=== PATIENT | female | born 1985 | race African-American/Black ===

== ENCOUNTER 2016-12-23 14:22 | Outpatient (CLI) | payer MEDICAID | END 2016-12-23 14:23 | disposition home or self-care (01) | LOC: SC 14:22 | PROVIDERS: ATTEND Specialist | DX: R06.83 Snoring (principal); E66.9 Obesity, unspecified; R53.83 Other fatigue | CPT/HCPCS: 99204; 99212 ==

== ENCOUNTER 2017-02-24 13:02 | Outpatient (CLI) | payer MEDICAID | END 2017-02-24 13:03 | disposition home or self-care (01) | LOC: SC 13:02 | PROVIDERS: ATTEND Specialist | DX: R06.83 Snoring (principal) | CPT/HCPCS: 99212; 99213 ==

== ENCOUNTER 2018-07-30 21:09 | Emergency (ER) | payer MEDICAID ==
[2018-07-30] MEDS ORDERED: DEXAMETHASONE 10 MG/ML VIAL PO STA (22:03)
[2018-07-30] MEDS ORDERED: CHERRY SYRUP 10 ML UDC PO ONE (22:13)
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
[2018-07-30 22:45] VITALS: BP 128/81
== END 2018-07-30 22:45 | disposition home or self-care (01) ==
LOC: ED 21:09
DX: R13.12 Dysphagia, oropharyngeal phase (principal)
CPT/HCPCS: 99283; A9270

== ENCOUNTER 2018-10-13 08:52 | Outpatient (CLI) | payer MEDICAID ==
--- NOTE | 2018-10-13 18:49 | XRAY Report ---
Reason: DYSPHAGIA Procedure Date: 10/13/2018 Accession Number: [id number] / [id number] Procedure: FL - Modified Barium Swallow W/SP CPT Code: FULL RESULT: EXAM: MODIFIED BARIUM SWALLOW EXAM DATE: 10/13/2018 09:52 AM. CLINICAL HISTORY: DYSPHAGIA. COMPARISON: None. TECHNIQUE: Under the direction of speech pathology, patient swallowed various consistencies of barium under lateral fluoroscopic observation of the neck. Fluoroscopy Time: 2 minutes 46 seconds. Number of Images: 98. FINDINGS: Swallowing Mechanism: Normal oral phase and swallowing reflex. Airway Protection: Normal epiglottic motion. No episodes of tracheal penetration or aspiration with all consistencies of barium. Pharynx: Normal. No significant vallecular or piriform sinus contrast pooling. Other: None. IMPRESSION: Normal modified barium swallow. No aspiration identified. See formal speech pathology report. RADIA
== END 2018-10-13 08:53 | disposition home or self-care (01) ==
LOC: DI 08:52
PROVIDERS: ATTEND Otolaryngology
DX: R13.19 Other dysphagia (principal); R47.02 Dysphasia
CPT/HCPCS: 74230

== ENCOUNTER 2018-10-24 14:57 | Emergency (ER) | payer MEDICAID ==
--- NOTE | 2018-10-24 16:13 | XRAY Report ---
Reason: cough, vomiting Procedure Date: 10/24/2018 Accession Number: [id number] / [id number] Procedure: XR - Chest 2 View X-Ray CPT Code: 20932 FULL RESULT: EXAM: CHEST RADIOGRAPHY EXAM DATE: 10/24/2018 04:04 PM. CLINICAL HISTORY: Cough and vomiting. COMPARISON: None. TECHNIQUE: 2 views. FINDINGS: Lungs/Pleura: No focal opacities evident. No pleural effusion. No pneumothorax. Normal volumes. Mediastinum: Heart and mediastinal contours are unremarkable. Other: None. IMPRESSION: No acute cardiopulmonary abnormality demonstrated. RADIA
--- NOTE | 2018-10-24 19:29 | ED Physician Documentation ---
PD HPI URI - Stated complaint Stated Complaint: SOA/ VOMIT - Chief complaint Chief Complaint: General - History obtained from History obtained from: Patient - History of Present Illness Timing - onset: How many months ago ( - 05/19) Timing duration: Months Timing details: Gradual onset, Waxing and waning Associated symptoms: Productive cough (having frequent cough with some white sputum and feeling of dyspnea. Has had some chest discomfort with coughing. Also has had trouble swallowing with feeling of food stuck at times. Improved with soft food/liquids. She is having some emesis at times, and she can't tell if is from coughing and vomiting phlegm or emesis from stomach per se. Had been to her PMD and had barium swallow study done which did not show abnormality. Patient believes her PMD is considering/getting referral for EGD. Had been given some cough med.). No: Fever Contributing factors: No: Sick contact, Travel, COPD / asthma Similar symptoms before: Has not had sx before (just the past 1-2 months) Recently seen: Clinic Review of Systems Constitutional: reports: Fatigue (for couple of weeks). denies: Fever, Chills, Myalgias Nose: denies: Rhinorrhea / runny nose, Congestion Throat: denies: Sore throat Cardiac: reports: Chest pain / pressure (with coughing) Respiratory: reports: Dyspnea, Cough. denies: Wheezing GI: reports: Nausea, Vomiting. denies: Abdominal Pain, Constipation, Diarrhea, Bloody / black stool Musculoskeletal: denies: Neck pain, Back pain, Extremity swelling Neurologic: reports: Generalized weakness. denies: Focal weakness, Numbness Endocrine: denies: Weight loss PD PAST MEDICAL HISTORY - Past Medical History Cardiovascular: None Respiratory: None Neuro: None Endocrine/Autoimmune: None GI: None WHIZZER HAND: None : None HEENT: None Psych: Depression, Anxiety Musculoskeletal: Other - Past Surgical History Past Surgical History: Yes General: Other Ortho: Other HEENT: Tonsil/Adenoidectomy - Present Medications Home Medications: Ambulatory Orders Medication Instructions Recorded Confirmed Naproxen 375 mg PO BID #20 tablet 02/14/16 Tramadol HCl 50 mg PO Q6H PRN #20 tablet 02/14/16 dexAMETHasone [Dexamethasone] 4 mg PO BID #10 tablet 07/30/18 Benzonatate [Tessalon Perle] 100 mg PO TID PRN #25 capsule 10/24/18 Doxycycline Hyclate 100 mg PO BID #20 capsule 10/24/18 Famotidine 20 mg PO DAILY #30 tablet 10/24/18 Ondansetron Odt [Zofran] 4 mg TL Q6H PRN #20 tablet 10/24/18 Sucralfate [Carafate] 1 gm PO TID #20 tablet 10/24/18 dexAMETHasone [Decadron] 4 mg PO DAILY #5 tablet 10/24/18 - Allergies Allergies/Adverse Reactions: Allergies Allergy/AdvReac Type Severity Reaction Status Date / Time No Known Drug Allergies Allergy Verified 10/24/18 15:09 - Social History Does the pt smoke?: No Smoking Status: Never smoker Does the pt drink ETOH?: No Does the pt have substance abuse?: No - Immunizations Immunizations are current?: No - POLST Patient has POLST: No PD ED PE NORMAL - Vitals Vital signs reviewed: Yes - General General: Alert and oriented X 3, No acute distress (intermittent cough), Well developed/nourished - HEENT HEENT: Moist mucous membranes, Pharynx benign - Neck Neck: Supple, no meningeal sign, No adenopathy - Cardiac Cardiac: RRR, No murmur - Respiratory Respiratory: Clear bilaterally - Abdomen Abdomen: Soft, Non tender, Non distended - Derm Derm: Normal color, Warm and dry - Extremities Extremities: No tenderness to palpate, Normal ROM s pain, No edema, No calf tenderness / cord - Neuro Neuro: Alert and oriented X 3, No motor deficit, Normal speech Results - Vitals Vitals: Vital Signs - 24 hr 10/24/18 10/24/18 10/24/18 15:05 18:08 20:28 Temperature 36.9 C 37.2 C Heart Rate 79 75 73 Respiratory 18 17 16 Rate Blood Pressure 149/78 H 132/78 H 131/76 H O2 Saturation 99 100 100 10/24/18 10/24/18 20:35 21:05 Temperature Heart Rate 80 72 Respiratory 20 Rate Blood Pressure 124/82 H O2 Saturation 98 Oxygen O2 Source Room air - Labs Labs: Laboratory Tests 10/24/18 19:20 WBC 9.6 RBC 4.70 Hgb 13.3 Hct 40.0 MCV 85.2 MCH 28.3 MCHC 33.2 RDW 13.7 Plt Count 261 MPV 9.2 Neut # (Auto) 6.2 Lymph # (Auto) 2.5 [place] # (Auto) 0.7 Eos # (Auto) 0.2 Baso # (Auto) 0.0 Absolute Nucleated RBC 0.01 Nucleated RBC % 0.1 - Rads (name of study) chest xray Radiology: Prelim report reviewed, See rad report (no acute process) PD MEDICAL DECISION MAKING - ED course Complexity details: reviewed results, considered differential (lung or bronchial process, with chronic productive cough, consider infectious, possible atypical bacterial. Also with symptoms sounding concerning for lower esophageal stricture, and refer to surgery for EGD. ), d/w patient Departure - Departure Disposition: 01 Home, Self Care Clinical Impression: Persistent cough for 3 weeks or longer Dysphagia Qualifiers: Dysphagia type: esophageal phase Qualified Code(s): R13.10 - Dysphagia, unspecified Condition: Stable Record reviewed to determine appropriate education?: Yes Instructions: ED Upper Resp Infec Abx Tx, ED GERD Follow-Up: Randall Machado MD [Provider Admit Priv/Credential] - Prescriptions: Benzonatate [Tessalon Perle] 100 mg PO TID PRN #25 capsule PRN Reason: Cough dexAMETHasone [Decadron] 4 mg PO DAILY #5 tablet Doxycycline Hyclate 100 mg PO BID #20 capsule Famotidine 20 mg PO DAILY #30 tablet Ondansetron Odt [Zofran] 4 mg TL Q6H PRN #20 tablet PRN Reason: Nausea / Vomiting Sucralfate [Carafate] 1 gm PO TID #20 tablet Comments: For the cough portion, would treated like bronchitis with possible bacterial cause and so would use doxycycline antibiotic twice daily for a week as well as Decadron steroid for the inflammation of the airways to reduce coughing and Tessalon if needed as a cough suppressant. Sounds like you have some irritation at the esophagus which commonly can be reflux. Use some famotidine twice daily for the next week or 2. He can add ondansetron if needed for nausea. Also coat the esophagus and stomach with suckle fate 2-3 times daily. Follow-up with your primary care this coming week for reevaluation. A consideration would be having this potential scope if this does not improve to see how the esophagus appears. You could call the surgery office for a follow-up appointment on that. Call tomorrow for an appointment this week. Hopefully this will improve with the above medications. Discharge Date/Time: 10/24/18 21:06
[2018-10-24 19:35] LABS: BASOPHILS % (AUTO) 0.3 %; EOSINOPHILS # (AUTO) 0.2 10^3/uL (0.0-0.7); EOSINOPHILS % (AUTO) 1.8 %; HGB - HEMOGLOBIN 13.3 g/dL (12.0-16.0); LYMPHOCYTES # (AUTO) 2.5 10^3/uL (1.5-3.5); LYMPHOCYTES % (AUTO) 25.8 %; MEAN CORPUSCULAR HEMOGLOBIN 28.3 pg (27.0-31.0); MEAN CORPUSCULAR HGB CONC 33.2 g/dL (32.0-36.0); MEAN CORPUSCULAR VOLUME 85.2 fL (81.0-99.0); MEAN PLATELET VOLUME 9.2 fL (7.9-10.8); MONOCYTES # (AUTO) 0.7 10^3/uL (0.0-1.0); MONOCYTES % (AUTO) 7.7 %; NEUTROPHILS # (AUTO) 6.2 10^3/uL (1.5-6.6); NEUTROPHILS % (AUTO) 64.4 %; PLT - PLATELET COUNT 261 10^3/uL (130-450); RED CELL DISTRIBUTION WIDTH 13.7 % (12.0-15.0); WHITE BLOOD COUNT 9.6 x10^3/uL (4.8-10.8)
[2018-10-24] MEDS ORDERED: LIDOCAINE VISCOUS 2% 15 ML UDC MM STA (19:59)
[2018-10-24] MEDS ORDERED: MAG HYDROX/AL HYDROX/SIMETH 30 ML UDC PO STA (20:00)
[2018-10-24] MEDS ORDERED: DOXYCYCLINE 100 MG TABLET PO STA (20:00)
[2018-10-24] MEDS ORDERED: FAMOTIDINE 20 MG/2 ML VIAL IVP STA (20:00)
[2018-10-24] MEDS ORDERED: BENZONATATE 100 MG CAPSULE PO STA (20:00)
[2018-10-24] MEDS ORDERED: DEXAMETHASONE 10 MG/ML VIAL IVP STA (20:00)
[2018-10-24] MEDS ORDERED: ALBUTEROL NEB 2.5 MG/3 ML INH STA (20:19)
[2018-10-24 21:06] VITALS: BP 124/82
== END 2018-10-24 21:06 | disposition home or self-care (01) ==
LOC: ED 14:57
DX: R05 Cough (principal); R13.19 Other dysphagia
CPT/HCPCS: 71046; 85025; 94640; 99283; 99284; A9270; 80053; 83690

== ENCOUNTER 2018-10-29 10:05 | Emergency (ER) | payer MEDICAID ==
[2018-10-29] MEDS ORDERED: METOCLOPRAMIDE 10 MG TABLET PO STA (12:19)
[2018-10-29 12:32] LABS: BASOPHILS % (AUTO) 0.3 %; EOSINOPHILS # (AUTO) 0.2 10^3/uL (0.0-0.7); EOSINOPHILS % (AUTO) 1.8 %; HGB - HEMOGLOBIN 12.4 g/dL (12.0-16.0); LYMPHOCYTES # (AUTO) 2.3 10^3/uL (1.5-3.5); LYMPHOCYTES % (AUTO) 20.8 %; MEAN CORPUSCULAR HEMOGLOBIN 27.9 pg (27.0-31.0); MEAN CORPUSCULAR HGB CONC 32.6 g/dL (32.0-36.0); MEAN CORPUSCULAR VOLUME 85.6 fL (81.0-99.0); MEAN PLATELET VOLUME 8.9 fL (7.9-10.8); MONOCYTES # (AUTO) 0.6 10^3/uL (0.0-1.0); MONOCYTES % (AUTO) 5.2 %; NEUTROPHILS # (AUTO) 8.1 10^3/uL (1.5-6.6); NEUTROPHILS % (AUTO) 71.9 %; PLT - PLATELET COUNT 232 10^3/uL (130-450); RED BLOOD COUNT 4.46 10^6/uL (4.20-5.40); RED CELL DISTRIBUTION WIDTH 13.3 % (12.0-15.0); WHITE BLOOD COUNT 11.3 x10^3/uL (4.8-10.8)
[2018-10-29 12:45] LABS: ALBUMIN 3.8 g/dL (3.2-5.5); BILIRUBIN,TOTAL 0.5 mg/dL (0.2-1.0); CALCIUM 9.3 mg/dL (8.5-10.3); CREATININE 0.7 mg/dL (0.4-1.0); TOTAL PROTEIN 7.8 g/dL (6.7-8.2)
[2018-10-29] MEDS ORDERED: METOCLOPRAMIDE 10 MG TABLET PO SCH (13:00)
[2018-10-29 13:13] LABS: BILIRUBIN,URINE NEGATIVE (NEGATIVE); CLARITY,URINE CLEAR (CLEAR); GLUCOSE, URINE (UA) NEGATIVE (NEGATIVE); KETONES,URINE (UA) NEGATIVE (NEGATIVE); LEUKOCYTE ESTERASE, URINE NEGATIVE (NEGATIVE); NITRITE,URINE NEGATIVE (NEGATIVE); OCCULT BLOOD,URINE NEGATIVE (NEGATIVE); PROTEIN,URINE NEGATIVE (NEGATIVE); UROBILINOGEN,URINE 0.2 (NORMAL) E.U./dL (NORMAL)
[2018-10-29 13:15] LABS: HCG UR QUAL NEGATIVE
--- NOTE | 2018-10-29 13:29 | XRAY Report ---
Reason: abd. pain; suspected constipation Procedure Date: 10/29/2018 Accession Number: [id number] / [id number] Procedure: XR - Abdomen 1 View X-Ray CPT Code: 69836 FULL RESULT: EXAM: ABDOMEN RADIOGRAPHY EXAM DATE: 10/29/2018 12:45 PM. CLINICAL HISTORY: Abdominal pain. Possible constipation. COMPARISON: None. TECHNIQUE: 1 view. FINDINGS: Bowel Gas Pattern: Within normal limits. No dilated loops. No significant retained stool. Other: None. IMPRESSION: Normal 1-view abdomen x-ray. RADIA
--- NOTE | 2018-10-29 13:46 | ED Physician Documentation ---
PD HPI ABD PAIN - Stated complaint Stated Complaint: CONSTIPATED - Chief complaint Chief Complaint: Abd Pain - History obtained from History obtained from: Patient - History of Present Illness Timing - onset: How many days ago (3) Timing - duration: Days (3) Timing - details: Still present Location: [facility] Recently seen: Emergency Dept (She was seen in the emergency department here 5 days ago for cough and sore throat with difficulty swallowing.) - Additional information Additional information: The patient is a 33-year-old female who states, "I can't go poop." Her last bowel movement was 3 days ago. She reports lower abdominal discomfort, but denies nausea, vomiting, fever, or dysuria. She denies history of similar symptoms in the past. She was seen in the emergency department here 5 days ago for cough and sore throat with difficulty swallowing. Chest x-ray at that time was negative. She was diagnosed with bronchitis and possible gastroesophageal reflux with some suspicion for esophageal stricture. It should be noted that she has previously undergone barium swallow for similar swallowing difficulty 3 months ago, and the swallowing study was normal. Review of Systems Constitutional: denies: Fever Nose: denies: Congestion Throat: denies: Sore throat Cardiac: denies: Chest pain / pressure Respiratory: denies: Dyspnea, Cough GI: reports: Abdominal Pain (Mild lower abdominal discomfort.), Constipation. denies: Nausea, Vomiting, Diarrhea : denies: Dysuria Skin: denies: Rash Musculoskeletal: denies: Back pain Neurologic: denies: Headache PD PAST MEDICAL HISTORY - Past Medical History Cardiovascular: None Respiratory: None Neuro: None Endocrine/Autoimmune: None GI: None COMPREHENSIVE OPHTHALMOLOGIST: None : None HEENT: None Psych: Depression, Anxiety Musculoskeletal: Other - Past Surgical History Past Surgical History: Yes General: Other Ortho: Other HEENT: Tonsil/Adenoidectomy - Present Medications Home Medications: Ambulatory Orders Medication Instructions Recorded Confirmed Naproxen 375 mg PO BID #20 tablet 02/14/16 Tramadol HCl 50 mg PO Q6H PRN #20 tablet 02/14/16 dexAMETHasone [Dexamethasone] 4 mg PO BID #10 tablet 07/30/18 Benzonatate [Tessalon Perle] 100 mg PO TID PRN #25 capsule 10/24/18 Doxycycline Hyclate 100 mg PO BID #20 capsule 10/24/18 Famotidine 20 mg PO DAILY #30 tablet 10/24/18 Ondansetron Odt [Zofran] 4 mg TL Q6H PRN #20 tablet 10/24/18 Sucralfate [Carafate] 1 gm PO TID #20 tablet 10/24/18 dexAMETHasone [Decadron] 4 mg PO DAILY #5 tablet 10/24/18 - Allergies Allergies/Adverse Reactions: Allergies Allergy/AdvReac Type Severity Reaction Status Date / Time No Known Drug Allergies Allergy Verified 10/29/18 10:16 - Social History Does the pt smoke?: No Smoking Status: Never smoker Does the pt drink ETOH?: No Does the pt have substance abuse?: No - Immunizations Immunizations are current?: No - POLST Patient has POLST: No PD ED PE NORMAL - Vitals Vital signs reviewed: Yes (normal) - General General: Alert and oriented X 3, Well developed/nourished - HEENT HEENT: Atraumatic, Pharynx benign - Neck Neck: No adenopathy - Cardiac Cardiac: RRR, No murmur - Respiratory Respiratory: No respiratory distress, Clear bilaterally - Abdomen Abdomen: Soft, Non tender, No organomegaly - Back Back: No CVA TTP - Derm Derm: No rash - Extremities Extremities: No edema, No calf tenderness / cord - Neuro Neuro: Alert and oriented X 3, No motor deficit, Normal speech Results - Vitals Vitals: Oxygen O2 Source Room air - Labs Labs: Laboratory Tests 10/29/18 10/29/18 10/29/18 12:26 12:26 13:09 WBC 11.3 H RBC 4.46 Hgb 12.4 Hct 38.1 MCV 85.6 MCH 27.9 MCHC 32.6 RDW 13.3 Plt Count 232 MPV 8.9 Neut # (Auto) 8.1 H Lymph # (Auto) 2.3 [place] # (Auto) 0.6 Eos # (Auto) 0.2 Baso # (Auto) 0.0 Absolute Nucleated RBC 0.00 Nucleated RBC % 0.0 Sodium 139 Potassium 3.4 L Chloride 103 Carbon Dioxide 27 Anion Gap 9.0 BUN 10 Creatinine 0.7 Estimated GFR (MDRD) 118 Glucose 116 H Calcium 9.3 Total Bilirubin 0.5 AST 20 ALT 17 Alkaline Phosphatase 61 Total Protein 7.8 Albumin 3.8 Globulin 4.0 Albumin/Globulin Ratio 1.0 Lipase 19 L Urine Color YELLOW Urine Clarity CLEAR Urine pH 7.0 Ur Specific [place] 1.015 Urine Protein NEGATIVE Urine Glucose (UA) NEGATIVE Urine Ketones NEGATIVE Urine Occult Blood NEGATIVE Urine Nitrite NEGATIVE Urine Bilirubin NEGATIVE Urine Urobilinogen 0.2 (NORMAL) Ur Leukocyte Esterase NEGATIVE Ur Microscopic Review NOT INDICATED Urine Culture Comments NOT INDICATED Urine HCG, Qual NEGATIVE - Rads (name of study) 1-view abd. Radiology: Prelim report reviewed, EMP read contemporaneously, See rad report (Normal 1 view abdominal x-ray.) PD MEDICAL DECISION MAKING - ED course Complexity details: reviewed old records, reviewed results, re-evaluated patient, considered differential, d/w patient ED course: The cause of the patient's lower abdominal discomfort is unclear at this time. CBC, chemistry panel, and urinalysis are unremarkable. test is negative. 1 view abdominal x-ray reveals no radiographic abnormality. Repeated abdominal examination reveals a benign abdomen. There is no clinical evidence to suggest appendicitis, diverticulitis, urinary tract infection, and test is negative. Although the patient reports having no bowel movement for the past 3 days, there is no significant stool load seen on radiographic imaging. Treatment in the emergency department included administration of metoclopramide 10 mg orally. I discussed with her the negative results of her workup, symptomatic treatment and outpatient follow-up, as well as potentially worrisome signs or symptoms that should prompt reevaluation in the emergency department. Departure - Departure Disposition: 01 Home, Self Care Clinical Impression: Abdominal pain of unknown cause Condition: Stable Instructions: ED Abdominal Pain Unkn Cause Follow-Up: Alfreda Sahu PA [Primary Care Provider] - Comments: Drink plenty of fluids. You can use milk of magnesia, up to 30 mL daily as a gentle stool softener. Follow-up with your primary physician within 2 weeks. Call to schedule appointment. Return to the emergency department if you develop increasing abdominal pain, persistent vomiting, or otherwise worsening symptoms. Discharge Date/Time: 10/29/18 14:16
[2018-10-29 14:17] VITALS: BP 124/79
== END 2018-10-29 14:16 | disposition home or self-care (01) ==
LOC: ED 10:05
DX: R10.30 Lower abdominal pain, unspecified (principal)
CPT/HCPCS: 36415; 74018; 80053; 81003; 81025; 83690; 85025; 99283; A9270; 81001; 87086

== ENCOUNTER 2018-12-18 03:32 | Outpatient (CLI) | payer MEDICAID | END 2018-12-18 03:33 | disposition critical access hospital (66) | LOC: EMS 03:32 | PROVIDERS: ATTEND Surgery | DX: R06.00 Dyspnea, unspecified (principal); R05 Cough; R49.0 Dysphonia | CPT/HCPCS: A0425; A0429; A0999 ==

== ENCOUNTER 2018-12-18 03:58 | Emergency (ER) | payer MEDICAID ==
--- NOTE | 2018-12-18 04:38 | ED Physician Documentation ---
History of Present Illness - Stated complaint Stated Complaint: SOA - Chief complaint Chief Complaint: Heent - History obtained from History obtained from: Patient, Family, EMS - History of Present Illness Timing: Other (gradually worsening symptoms over past week) Pain level max: 0 Pain level now: 0 Improved by: no ameliorating factors Worsened by: no exacerbating factors - Additonal information Additional information: Brought in by ambulance for shortness of breath. Patient was diagnosed approximately one month ago with myasthenia gravis. She has been on pyridostygmine since the diagnosis was made, but has experience gradually worsening symptoms despite this medication, particularly over the past week. She was reevaluated by her neurologist on Thursday, at which time she was prescribed a prednisone taper and her pyridostygmine was increased from three times a day to four times a day. She has had two days of prednisone, 80 mg per day, thus far. Despite these medications, she has continue to have gradually worsening symptoms. She complains of shortness of breath, cough, and difficulty swallowing secretions as well as coughing up secretions. She also has had gradually worsening difficulty with speaking. Patient says she is scheduled to have a CAT scan done at [facility] later this month in preparation for likely thymectomy. Review of Systems Constitutional: reports: Reviewed and negative Eyes: reports: Reviewed and negative Throat: reports: Reviewed and negative Cardiac: reports: Reviewed and negative Respiratory: reports: Dyspnea, Cough GI: reports: Reviewed and negative Neurologic: reports: Difficulty speaking. 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 : None HEENT: None Psych: Depression, Anxiety Musculoskeletal: Other Other Past Medical History: Myasthenia Gravis - Past Surgical History Past Surgical History: Yes General: Other Ortho: Other HEENT: Tonsil/Adenoidectomy - Present Medications Home Medications: Ambulatory Orders Medication Instructions Recorded Confirmed Pyridostigmine [place] [Mestinon] 60 mg PO DAILY 12/18/18 12/18/18 predniSONE [Prednisone] 80 mg PO DAILY 12/18/18 12/18/18 - Allergies Allergies/Adverse Reactions: Allergies Allergy/AdvReac Type Severity Reaction Status Date / Time No Known Drug Allergies Allergy Verified 12/18/18 04:09 - Social History Does the pt smoke?: No Smoking Status: Never smoker Does the pt drink ETOH?: No Does the pt have substance abuse?: No - Immunizations Immunizations are current?: No - POLST Patient has POLST: No PD ED PE NORMAL - Vitals Vital signs reviewed: Yes - General General: Alert and oriented X 3, No acute distress, Well developed/nourished, Other (NAD. speaks softly and difficulty with phonation such that it is often difficult to understand what she is saying) - HEENT HEENT: PERRL, EOMI, Moist mucous membranes - Neck Neck: Supple, no meningeal sign - Cardiac Cardiac: RRR, No murmur - Respiratory Respiratory: No respiratory distress, Clear bilaterally - Abdomen Abdomen: Soft, Non tender - Derm Derm: Normal color, Warm and dry - Extremities Extremities: No edema - Neuro Neuro: Alert and oriented X 3, batch room technician 2-12 intact, No motor deficit, No sensory deficit Eye Opening: Spontaneous Motor: Obeys Commands Verbal: Oriented GCS Score: 15 Results - Vitals Vitals: Vital Signs - 24 hr 12/18/18 12/18/18 12/18/18 04:04 07:30 09:00 Temperature 36.7 C Heart Rate 69 62 73 Respiratory 22 13 16 Rate Blood Pressure 174/98 H 107/63 111/76 O2 Saturation 96 99 98 12/18/18 12/18/18 12/18/18 11:00 13:00 15:00 Temperature Heart Rate 65 59 L 66 Respiratory 13 14 12 Rate Blood Pressure 112/93 H 116/72 132/60 H O2 Saturation 99 99 100 12/18/18 12/18/18 17:00 18:12 Temperature Heart Rate 64 60 Respiratory 14 14 Rate Blood Pressure 133/84 H 139/84 H O2 Saturation 100 100 Oxygen O2 Source Room air - Labs Labs: Laboratory Tests 12/18/18 12/18/18 12/18/18 05:40 05:40 09:42 WBC 10.9 H RBC 4.04 L Hgb 11.5 L Hct 36.3 L MCV 89.9 MCH 28.5 MCHC 31.7 L RDW 13.2 Plt Count 213 MPV 11.0 H Neut # (Auto) 6.5 Lymph # (Auto) 3.6 H [place] # (Auto) 0.7 Eos # (Auto) 0.0 Baso # (Auto) 0.0 Absolute Nucleated RBC 0.00 Nucleated RBC % 0.0 Bld Gas Analysis Time 0942 Sample Site LEFT RADIAL ABG pH 7.41 ABG pCO2 40 ABG pO2 77 L ABG HCO3 24.9 ABG Total CO2 26.1 ABG O2 Saturation 95 ABG Base Excess 0.4 Adarsh Test POSITIVE Room Air YES Sodium 144 Potassium 3.9 Chloride 106 Carbon Dioxide 24 Anion Gap 14.0 H BUN 12 Creatinine 0.6 Estimated GFR (MDRD) 140 Glucose 96 Calcium 9.3 - Rads (name of study) chest xray Radiology: Prelim report reviewed, See rad report PD MEDICAL DECISION MAKING - ED course Complexity details: reviewed old records, reviewed results, re-evaluated patient, considered differential, d/w patient, d/w family ED course: patients neurologist is Dr. Burgess at [facility]; unfortunately, neurology is not sponge maker at [facility] this weekend. contact at [facility] attempted to reach Dr. Burgess despite not being sponge maker and they subsequently called back to inform that they were unable to contact Dr. Burgess. Called to [facility], no beds available. Called to [facility] No beds available at [facility] in [place] but transfer center put me in contact with the hospitalist at their facility in [place]. Hospitalist recommends CXR and ABG and to have patient take their morning dose of pyridostygmine. Hospitalist will discuss the case with neurology and recontact [facility] ED to confirm plan provided appropriate bed is available. This return call, as well as results of cxr and abg, were still pending at end of my shift and thus care of patient turned over to Dr. Thomas. Departure - Departure Disposition: 02 Transfer Acute Care Hosp Clinical Impression: Myasthenia gravis in crisis Condition: Serious Discharge Date/Time: 12/18/18 18:49
[2018-12-18 05:52] LABS: BASOPHILS % (AUTO) 0.2 %; EOSINOPHILS % (AUTO) 0.3 %; HGB - HEMOGLOBIN 11.5 g/dL (12.0-16.0); LYMPHOCYTES # (AUTO) 3.6 10^3/uL (1.5-3.5); LYMPHOCYTES % (AUTO) 32.8 %; MEAN CORPUSCULAR HEMOGLOBIN 28.5 pg (27.0-31.0); MEAN CORPUSCULAR HGB CONC 31.7 g/dL (32.0-36.0); MEAN CORPUSCULAR VOLUME 89.9 fL (81.0-99.0); MONOCYTES # (AUTO) 0.7 10^3/uL (0.0-1.0); MONOCYTES % (AUTO) 6.6 %; NEUTROPHILS # (AUTO) 6.5 10^3/uL (1.5-6.6); NEUTROPHILS % (AUTO) 59.7 %; PLT - PLATELET COUNT 213 10^3/uL (130-450); RED BLOOD COUNT 4.04 10^6/uL (4.20-5.40); RED CELL DISTRIBUTION WIDTH 13.2 % (12.0-15.0); WHITE BLOOD COUNT 10.9 x10^3/uL (4.8-10.8)
[2018-12-18 06:16] LABS: CALCIUM 9.3 mg/dL (8.5-10.3); CREATININE 0.6 mg/dL (0.4-1.0)
[2018-12-18 09:55] LABS: ABG BASE EXCESS 0.4 mmol/L (-2.0-3.0); ABG HCO3 24.9 mmol/L (22.0-26.0); ABG OXYGEN SATURATION 95 % (94-98); ABG PCO2 40 mmHg (34-45); ABG PH 7.41 (7.35-7.45); ABG PO2 77 mmHg (80-100); ABG TCO2 26.1 MMOL/L (21.0-29.0); ALLEN TEST POSITIVE
--- NOTE | 2018-12-18 09:55 | XRAY Report ---
Reason: dyspnea Procedure Date: 12/18/2018 Accession Number: [id number] / [id number] Procedure: XR - Chest 2 View X-Ray CPT Code: 03687 FULL RESULT: EXAM: CHEST RADIOGRAPHY EXAM DATE: 12/18/2018 09:31 AM. CLINICAL HISTORY: Dyspnea. History of myasthenia gravis. COMPARISON: CHEST 2 VIEW 10/24/2018 4:00 PM. TECHNIQUE: 2 views. FINDINGS: Lungs/Pleura: There is mild interstitial prominence at the bilateral lung bases. No pleural effusion or pneumothorax. There is stable asymmetric elevation of the left hemidiaphragm. Mediastinum: Heart and mediastinal contours are unremarkable. Other: No acute osseous abnormality. IMPRESSION: 1. Mild interstitial prominence of the bilateral lung bases, suggestive of atelectasis and/or edema. Pneumonia or aspiration cannot be excluded. 2. There is stable asymmetric elevation of the left hemidiaphragm. RADIA
--- NOTE | 2018-12-18 17:43 | ED Physician Documentation ---
ED Addendum - Addendum Addendum: Patient was signed out to me from Dr. Segura. This is a 33-year-old female with myasthenia gravis who presents in what appears to be myasthenia crisis. We are awaiting consultation with neurology [facility]. I spoke to neurologist on-call [facility], who asked That a NIF be performed. NIF returned at -18, FVC was 1.4 L. Chest x-ray showed bilateral atelectasis.ABG showed pH of 7.4, PaO2 of 77, and PCO2 of 40. Given her poor negative ventilatory force she will require admission to an ICU. I spoke with Dr. Ellis At the [facility] ICU, who accepted the patient for transfer. She will be going ALS given her risk of decompensation. On my evaluation she is normoxic, she feels that she is been stable and she has been observed in our emergency department for over 10 hours at this point, I do not feel that she requires intubation prior to transfer. Additional IV access was secured to the patient has 2 lines. I spoke with the medics about my specific concerns with her airway and risk for decompensation. I updated patient with the plan of care, she was in agreement. She has been taking her home dose of the pyridostigmine while in our ED, last dose at 16:00. Patient was subsequently transferred to ICU via ALS. 12/18/18 17:39 12/18/18 21:00 Departure - Departure Disposition: 02 Transfer Acute Care Hosp Clinical Impression: Myasthenia gravis in crisis Condition: Serious Discharge Date/Time: 12/18/18 18:49
[2018-12-18 18:30] VITALS: BP 139/84
== END 2018-12-18 18:49 | disposition short-term general hospital (02) ==
LOC: EDUNIT# → ED 03:58
DX: G70.01 Myasthenia gravis with (acute) exacerbation (principal)
CPT/HCPCS: 36415; 36600; 71046; 80048; 82803; 85025; 99284; 99285

== ENCOUNTER 2019-04-23 19:56 | Emergency (ER) | payer MEDICAID ==
--- NOTE | 2019-04-23 20:39 | ED Physician Documentation ---
PD HPI DYSPNEA - Stated complaint Stated Complaint: SOA - Chief complaint Chief Complaint: Resp - History obtained from History obtained from: Patient - History of Present Illness Timing - onset: Last night Timing - details: Gradual onset, Waxing and waning Pain level max: 0 Pain level now: 0 Improved by: Rest Worsened by: Exertion Associated symptoms: No: Fever, Cough, Wheezing, Chest pain / discomfort, Palpitations Similar symptoms before: Diagnosis (myasthenia gravis) Recently seen: Not recently seen - Additional information Additional information: diagnosed with myasthenia gravis in November, was transferred from this ED ([facility]) to [facility] in December for dyspnea and severe weakness. She has been doing well since then with prednisone and pyridostigmine until last night when she had gradually worsening dyspnea on exertion and generalized weakness. Review of Systems Constitutional: reports: Fatigue. denies: Fever, Chills, Sweats Eyes: reports: Reviewed and negative Ears: reports: Reviewed and negative Nose: reports: Reviewed and negative Throat: reports: Reviewed and negative Cardiac: reports: Reviewed and negative Respiratory: reports: Dyspnea. denies: Cough, Wheezing GI: reports: Reviewed and negative : denies: Dysuria, Frequency, Now EGA Skin: reports: Reviewed and negative Musculoskeletal: reports: Reviewed and negative Neurologic: reports: Generalized weakness. 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 : None HEENT: None Psych: Depression, Anxiety Musculoskeletal: Other Other Past Medical History: Myasthenia Gravis - Past Surgical History Past Surgical History: Yes General: Other Ortho: Other HEENT: Tonsil/Adenoidectomy - Present Medications Home Medications: Ambulatory Orders Medication Instructions Recorded Confirmed Pyridostigmine [place] [Mestinon] 60 mg PO DAILY 12/18/18 12/18/18 predniSONE [Prednisone] 80 mg PO DAILY 12/18/18 12/18/18 - Allergies Allergies/Adverse Reactions: Allergies Allergy/AdvReac Type Severity Reaction Status Date / Time No Known Drug Allergies Allergy Verified 04/23/19 20:05 - Social History Does the pt smoke?: No Smoking Status: Never smoker Does the pt drink ETOH?: No Does the pt have substance abuse?: No - Immunizations Immunizations are current?: No - POLST Patient has POLST: No PD ED PE NORMAL - Vitals Vital signs reviewed: Yes - General General: Alert and oriented X 3, No acute distress, Well developed/nourished - HEENT HEENT: PERRL, EOMI, Moist mucous membranes - Neck Neck: Supple, no meningeal sign - Cardiac Cardiac: RRR, No murmur, No gallop, No rub - Respiratory Respiratory: No respiratory distress, Clear bilaterally - Abdomen Abdomen: Soft, Non tender - Derm Derm: Normal color, Warm and dry - Extremities Extremities: No edema - Neuro Neuro: Alert and oriented X 3, 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 2-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, No motor deficit, No sensory deficit, Normal speech Eye Opening: Spontaneous Motor: Obeys Commands Verbal: Oriented GCS Score: 15 Results - Vitals Vitals: Vital Signs - 24 hr 04/23/19 04/24/19 04/24/19 20:04 00:05 00:46 Temperature 37.1 C 36.8 C Heart Rate 59 L 79 81 Respiratory 16 19 17 Rate Blood Pressure 136/86 H 151/83 H 149/75 H O2 Saturation 99 96 97 04/24/19 04/24/19 01:47 02:25 Temperature 36.8 C 36.9 C Heart Rate 72 76 Respiratory 22 18 Rate Blood Pressure 133/82 H 133/72 H O2 Saturation 96 100 Oxygen O2 Source Room air - Labs Labs: Laboratory Tests 04/23/19 04/23/19 04/23/19 20:40 20:40 22:05 WBC 13.6 H RBC 4.37 Hgb 12.4 Hct 39.2 MCV 89.7 MCH 28.4 MCHC 31.6 L RDW 13.0 Plt Count 218 MPV 10.9 H Neut # (Auto) 12.0 H Lymph # (Auto) 1.1 L [place] # (Auto) 0.3 Eos # (Auto) 0.0 Baso # (Auto) 0.0 Absolute Nucleated RBC 0.00 Nucleated RBC % 0.0 Bld Gas Analysis Time 2208 Sample Site RIGHT BRACHIAL ABG pH 7.41 ABG pCO2 40 ABG pO2 75 L ABG HCO3 24.7 ABG Total CO2 25.9 ABG O2 Saturation 95 ABG Base Excess 0.1 Adarsh Test POSITIVE Room Air YES Sodium 140 Potassium 3.9 Chloride 104 Carbon Dioxide 29 Anion Gap 7.0 BUN 11 Creatinine 0.7 Estimated GFR (MDRD) 118 Glucose 160 H Calcium 9.3 Total Bilirubin 0.2 AST 30 ALT 36 Alkaline Phosphatase 69 Total Protein 8.0 Albumin 3.8 Globulin 4.2 Albumin/Globulin Ratio 0.9 L Lipase 23 PD MEDICAL DECISION MAKING - ED course Complexity details: reviewed old records, reviewed results, re-evaluated patient, considered differential, d/w patient, d/w family ED course: patient presents with dyspnea and weakness which feel similar, albeit milder, to previous MG exacerbation. D/W Dr. Estrada (neurology at [facility]). Agrees patient would benefit from transfer but plasma exchange cannot be performed at [facility] and she is not confident that IVIG would be available due to a national shortage. D/W Dr. Arce (neurology at [facility]), accepts transfer to [facility] Departure - Departure Disposition: 02 Transfer Acute Care Hosp Clinical Impression: Myasthenia gravis with exacerbation Condition: Stable Discharge Date/Time: 04/24/19 02:33
[2019-04-23 20:51] LABS: BASOPHILS % (AUTO) 0.2 %; HGB - HEMOGLOBIN 12.4 g/dL (12.0-16.0); LYMPHOCYTES # (AUTO) 1.1 10^3/uL (1.5-3.5); LYMPHOCYTES % (AUTO) 8.3 %; MEAN CORPUSCULAR HEMOGLOBIN 28.4 pg (27.0-31.0); MEAN CORPUSCULAR HGB CONC 31.6 g/dL (32.0-36.0); MEAN CORPUSCULAR VOLUME 89.7 fL (81.0-99.0); MEAN PLATELET VOLUME 10.9 fL (7.9-10.8); MONOCYTES # (AUTO) 0.3 10^3/uL (0.0-1.0); MONOCYTES % (AUTO) 2.4 %; NEUTROPHILS % (AUTO) 88.4 %; PLT - PLATELET COUNT 218 10^3/uL (130-450); RED BLOOD COUNT 4.37 10^6/uL (4.20-5.40); WHITE BLOOD COUNT 13.6 x10^3/uL (4.8-10.8)
[2019-04-23 21:03] LABS: ALBUMIN 3.8 g/dL (3.2-5.5); ALBUMIN/GLOBULIN RATIO 0.9 (1.0-2.2); BILIRUBIN,TOTAL 0.2 mg/dL (0.2-1.0); CALCIUM 9.3 mg/dL (8.5-10.3); CREATININE 0.7 mg/dL (0.4-1.0)
[2019-04-23 22:13] LABS: ABG BASE EXCESS 0.1 mmol/L (-2.0-3.0); ABG HCO3 24.7 mmol/L (22.0-26.0); ABG OXYGEN SATURATION 95 % (94-98); ABG PCO2 40 mmHg (34-45); ABG PH 7.41 (7.35-7.45); ABG PO2 75 mmHg (80-100); ABG TCO2 25.9 MMOL/L (21.0-29.0); ALLEN TEST POSITIVE
[2019-04-24 02:35] VITALS: BP 133/72
== END 2019-04-24 02:33 | disposition short-term general hospital (02) ==
LOC: ED 19:56
DX: G70.01 Myasthenia gravis with (acute) exacerbation (principal)
CPT/HCPCS: 36415; 36600; 80053; 82803; 83690; 85025; 99285

== ENCOUNTER 2019-07-18 09:12 | Outpatient (CLI) | payer MEDICAID ==
[2019-07-18 10:45] VITALS: BP 130/74
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
== END 2019-07-18 09:13 | disposition home or self-care (01) ==
LOC: SC 09:12
PROVIDERS: ATTEND Nurse Practitioner Family
DX: G47.10 Hypersomnia, unspecified (principal); G47.8 Other sleep disorders; G25.81 Restless legs syndrome; R06.83 Snoring; R41.89 Other symptoms and signs involving cognitive functions and awareness; E66.01 Morbid (severe) obesity due to excess calories; Z68.42 Body mass index [BMI] 45.0-49.9, adult; R07.9 Chest pain, unspecified
CPT/HCPCS: 99212; 99215

== ENCOUNTER 2019-08-12 20:21 | Outpatient (CLI) | payer MEDICAID | END 2019-08-12 20:22 | disposition home or self-care (01) | LOC: SC 20:21 | PROVIDERS: ATTEND Internal Medicine Pulmonary Disease | DX: G47.33 Obstructive sleep apnea (adult) (pediatric) (principal); E66.01 Morbid (severe) obesity due to excess calories; Z68.36 Body mass index [BMI] 36.0-36.9, adult | CPT/HCPCS: 95810 ==

== ENCOUNTER 2019-09-19 16:50 | Outpatient (CLI) | payer MEDICAID ==
--- NOTE | 2019-09-19 11:33 | SLEEP CARE CONSULTATION ---
Information from patient questionnaire entered by Iveth Carrera. I have reviewed and concur with the information entered by Iveth Carrera. This document represents the service I personally performed and the decisions made by me, Xiomara Mcmillan RN, MSN, INSPECTOR BOILER. History of Present Illness Service Date and Time: 09/19/2019 1650 Initial [place] Sleepiness Scale score: 16 Additional HPI information: HANNAH SIMON was called for a telehealth follow up to discuss results of the recently performed polysomnography. I explained the pathophysiology behind obstructive sleep apnea. We then spent quite a bit of time discussing different treatment options. For mild obst ructive sleep apnea, surgery and oral appliance are alternatives to nasal CPAP therapy but in moderate or severe cases, nasal CPAP is the most effective and reliable treatment. I reviewed the impact of weight changes on sleep apnea and strongly recommended losing weight if overweight. After some discussion, the patient opted to go with the nasal CPAP therapy. Nasal autoCPAP set at [id number] will be ordered with rationale explained until a manual titration study can be ordered to find optimal pressure and evaluate if she requires a BiPAP or BiPAP ST as her specialist has discussed with her due to her myasthenia gravis. I explained how CPAP machine works and what to expect when using the machine. Using CPAP every night in order to get used to it was emphasized. Patient advised to put CPAP mask on before getting into bed so as not to fall asleep without CPAP. To assist acclimation to CPAP use, it could also be used for a short time during day while reading or watching TV. The patient was instructed to call the CPAP supplier to discuss any mechanical problamem that may occur. If the mask given is uncomfortable or is difficult to keep on through the night even with adjustment, contact the CPAP supplier as many will replace with another mask style if notified before 30 days. If snoring or perceives is not getting enough air or too much air from the machine, notify this office. AASM patient education PAP tips will be sent to patient Patient counseled not drink alcohol less than 4 hours before bedtime as it can increase snoring and apnea. Patient was cautioned about risks of drowsy driving until sleepiness symptoms resolve. Sleep Study - Results Polysomnography/Home Sleep Study results: The quality of the study is good. The patient had normal sleep efficiency. The sleep architecture was abnormal for sleep fragmentation and reduced amount of time spent in REM sleep.. Respiratory monitoring showed severe obstructive sleep apnea-hypopnea (AHI = 36.7) associated with frequent arousals, oxyhemoglobin desaturation and mild hypoxia (sary oxygen saturation of 80%). Baseline oxygen saturation was normal. The respiratory events occurred almost exclusively during supine sleep (supine AHI = 56.3; non-supine = 5.29). Snore was moderate to loud in intensity. There was no significant periodic leg movement of sleep. Cardiac rhythm was normal sinus rhythm without significant arrhythmia. No abnormal behavior (parasomnia) observed during the night. Allergies and Home Medications Home medication list reviewed: No (no changes) Review of Systems Review of systems same as previous: Yes Physical Exam Height: 5 ft 8 in Impression and Plan 1. Obstructive Sleep Apnea-Hypopnea Syndrome,severe , with lowest oxygen saturation of 80%. Obviously this is the cause of the patients symptoms of unrefreshed sleep, and excessive daytime sleepiness. Positive pressure therapy could benefit Myasthenia gravis and depression. As mentioned above, the patient will be started on nasal autoCPAP therapy with pressure set at 4-15 cmH2O until a . A manual titration study can be completed to determine if she requires a BiPAP due to her myasthenia gravis as recoomended by her specialist. Compliance guidelines also reviewed. A copy of compliance guidelines will be given for reference at check out. Because the apnea is more severe supine, I instructed to avoid sleeping supine using pillow positioning or Tshirt with tennis balls until able to start CPAP use. * Nasal auto CPAP therapy, pressure at 4-15cm H2O. * Schedule manual titration study * Attempt to lose weight if overweight. * Avoid alcohol consumption near bedtime. * Avoid supine sleep until using CPAP. * The patient is again cautioned about driving until sleepiness completely resolves. * Return one month after CPAP obtained. I will assess response to therapy and compliance at that time. Visit Type: Telehealth Phone (to reduce risk of Covid 19 risk) Patient Location: Home Location of Provider: Home Patient agrees and consents to this telehealth visit type: Yes Patient agrees to have their insurance billed: Yes Time Spent with Patient (minutes): 17 Provider Statement: I spent 100% of the Telehealth Phone Call with the patient with greater than 50% spent counseling the patient and coordination of care.
== END 2019-09-19 16:51 | disposition home or self-care (01) ==
LOC: SC 16:50
PROVIDERS: ATTEND Nurse Practitioner Family
DX: G47.33 Obstructive sleep apnea (adult) (pediatric) (principal)

== ENCOUNTER 2019-10-29 17:57 | Emergency (ER) | payer MEDICAID ==
[2019-10-29 18:29] LABS: BASOPHILS % (AUTO) 0.2 %; HGB - HEMOGLOBIN 13.1 g/dL (12.0-16.0); LYMPHOCYTES # (AUTO) 1.5 10^3/uL (1.5-3.5); LYMPHOCYTES % (AUTO) 9.6 %; MEAN CORPUSCULAR HEMOGLOBIN 28.6 pg (27.0-31.0); MEAN CORPUSCULAR HGB CONC 31.6 g/dL (32.0-36.0); MEAN CORPUSCULAR VOLUME 90.6 fL (81.0-99.0); MEAN PLATELET VOLUME 11.1 fL (7.9-10.8); MONOCYTES # (AUTO) 0.5 10^3/uL (0.0-1.0); MONOCYTES % (AUTO) 3.2 %; NEUTROPHILS # (AUTO) 13.5 10^3/uL (1.5-6.6); NEUTROPHILS % (AUTO) 85.9 %; PLT - PLATELET COUNT 205 10^3/uL (130-450); RED BLOOD COUNT 4.58 10^6/uL (4.20-5.40); RED CELL DISTRIBUTION WIDTH 13.7 % (12.0-15.0); WHITE BLOOD COUNT 15.7 x10^3/uL (4.8-10.8)
[2019-10-29 18:43] LABS: ALBUMIN 3.4 g/dL (3.2-5.5); ALBUMIN/GLOBULIN RATIO 0.6 (1.0-2.2); BILIRUBIN,TOTAL 0.6 mg/dL (0.2-1.0); CALCIUM 9.1 mg/dL (8.5-10.3); CREATININE 0.9 mg/dL (0.4-1.0); TOTAL PROTEIN 9.3 g/dL (6.7-8.2)
[2019-10-29 18:53] LABS: VBG BASE EXCESS -2.6 mmol/L (-2 - +2); VBG PCO2 34.9 mmHg (41-51); VBG PH 7.406 (7.31-7.41); VBG PO2 56.2 mmHg (25-47); VBG TOTAL CO2 22.5 mmol/L (24-29)
[2019-10-29] MEDS ORDERED: glipiZIDE 5 MG TABLET PO STA (19:16)
--- NOTE | 2019-10-29 19:18 | ED Physician Documentation ---
History of Present Illness - Stated complaint Stated Complaint: HIGH BLOOD SUGAR - Chief complaint Chief Complaint: General - History obtained from History obtained from: Patient (This is a 34-year-old woman who was diagnosed with myasthenia gravis and is on a very long slow prednisone taper. Over the last few days her family started checking her blood sugars and it is been persistently up in the high 300s. They started checking it because she was acting a little off and confused.) Review of Systems Ten Systems: 10 systems reviewed and negative Constitutional: reports: Fatigue. denies: Fever, Chills Cardiac: denies: Chest pain / pressure, Palpitations Respiratory: denies: Dyspnea, Cough PD PAST MEDICAL HISTORY - Past Medical History Past Medical History: Yes Cardiovascular: None Respiratory: None Neuro: None Endocrine/Autoimmune: None GI: None ATTORNEY GENERAL: None : None HEENT: None Psych: Depression, Anxiety Musculoskeletal: Other Derm: None - Past Surgical History Past Surgical History: Yes General: Other Ortho: Other HEENT: Tonsil/Adenoidectomy - Present Medications Home Medications: Ambulatory Orders Medication Instructions Recorded Confirmed Pyridostigmine [place] [Mestinon] 90 mg PO Q4HR 12/18/18 08/04/19 predniSONE [Prednisone] 80 mg PO DAILY 12/18/18 08/04/19 Glipizide 5 mg PO DAILY #30 tablet 10/29/19 - Allergies Allergies/Adverse Reactions: Allergies Allergy/AdvReac Type Severity Reaction Status Date / Time No Known Drug Allergies Allergy Verified 08/04/19 13:03 - Social History Does the pt smoke?: No Smoking Status: Never smoker Does the pt drink ETOH?: No Does the pt have substance abuse?: No - Immunizations Immunizations are current?: No - POLST Patient has POLST: No PD ED PE NORMAL - Vitals Vital signs reviewed: Yes - General General: Alert and oriented X 3, No acute distress - Back Back: No CVA TTP, No spinal TTP - Derm Derm: Normal color, Warm and dry - Neuro Neuro: Alert and oriented X 3, Normal speech Results - Vitals Vitals: Vital Signs - 24 hr 10/29/19 18:04 Temperature 36 C L Heart Rate 65 Respiratory 20 Rate Blood Pressure 169/92 H O2 Saturation 98 Oxygen O2 Source Room air - Labs Labs: Laboratory Tests 10/29/19 10/29/19 10/29/19 18:25 18:25 18:26 WBC 15.7 H RBC 4.58 Hgb 13.1 Hct 41.5 MCV 90.6 MCH 28.6 MCHC 31.6 L RDW 13.7 Plt Count 205 MPV 11.1 H Neut # (Auto) 13.5 H Lymph # (Auto) 1.5 Hayes # (Auto) 0.5 Eos # (Auto) 0.0 Baso # (Auto) 0.0 Absolute Nucleated RBC 0.00 Nucleated RBC % 0.0 VBG pH VBG pCO2 VBG pO2 VBG HCO3 VBG Total CO2 VBG O2 Saturation VBG Base Excess Sodium 131 L Potassium 4.1 Chloride 93 L Carbon Dioxide 23 Anion Gap 15.0 H BUN 21 H Creatinine 0.9 Estimated GFR (MDRD) 87 L Glucose 385 H Calcium 9.1 Total Bilirubin 0.6 AST 63 H ALT 61 H Alkaline Phosphatase 134 H Total Protein 9.3 H Albumin 3.4 Globulin 5.9 H Albumin/Globulin Ratio 0.6 L Lipase 40 Serum Ketones NEGATIVE 10/29/19 18:45 WBC RBC Hgb Hct MCV MCH MCHC RDW Plt Count MPV Neut # (Auto) Lymph # (Auto) Hayes # (Auto) Eos # (Auto) Baso # (Auto) Absolute Nucleated RBC Nucleated RBC % VBG pH 7.406 VBG pCO2 34.9 L VBG pO2 56.2 H VBG HCO3 21.4 L VBG Total CO2 22.5 L VBG O2 Saturation 89.7 H VBG Base Excess -2.6 L Sodium Potassium Chloride Carbon Dioxide Anion Gap BUN Creatinine Estimated GFR (MDRD) Glucose Calcium Total Bilirubin AST ALT Alkaline Phosphatase Total Protein Albumin Globulin Albumin/Globulin Ratio Lipase Serum Ketones PD MEDICAL DECISION MAKING - ED course ED course: This is a very pleasant 34-year-old woman who presents with elevated blood sugars in the setting of ongoing steroid use for myasthenia gravis. No evidence of DKA. I recommended starting metformin but she says she already has problems with chronic severe diarrhea and so glipizide was chosen instead. Departure - Departure Disposition: 01 Home, Self Care Clinical Impression: Elevated blood sugar Condition: Good Record reviewed to determine appropriate education?: Yes Instructions: ED Hyperglycemia New Susp Diabetes Prescriptions: Glipizide 5 mg PO DAILY #30 tablet Comments: No evidence of diabetic ketoacidosis today. Your blood sugars are elevated as you already know and we are adding glipizide for this. Recheck with your doctor in about a week keeping track of your blood sugars between now and then. Return if worse.
[2019-10-29 19:27] VITALS: BP 134/84
[2019-10-29 19:37] LABS: HB2 TOTAL 13.6 g/dL; HEMOGLOBIN A1C 1.19 g/dL; HEMOGLOBIN A1C % 10.2 % (4.6-6.2)
[2019-10-29 19:57] LABS: BILIRUBIN,URINE NEGATIVE (NEGATIVE); GLUCOSE, URINE (UA) >=1000 mg/dL (NEGATIVE); KETONES,URINE (UA) NEGATIVE (NEGATIVE); LEUKOCYTE ESTERASE, URINE NEGATIVE (NEGATIVE); NITRITE,URINE NEGATIVE (NEGATIVE); OCCULT BLOOD,URINE SMALL (NEGATIVE); PROTEIN,URINE NEGATIVE (NEGATIVE); UROBILINOGEN,URINE 0.2 (NORMAL) E.U./dL (NORMAL)
[2019-10-29 20:00] LABS: CLARITY,URINE CLEAR (CLEAR); HCG UR QUAL NEGATIVE
[2019-10-29 20:06] LABS: BACTERIA,URINE None Seen /HPF (None Seen); RBC,URINE 0-5 /HPF (0-5); SQUAMOUS EPITHELIAL CELL,UR FEW Squamous (<= Few)
== END 2019-10-29 19:34 | disposition home or self-care (01) ==
LOC: ED 17:57
DX: R73.9 Hyperglycemia, unspecified (principal); G70.00 Myasthenia gravis without (acute) exacerbation; Z79.52 Long term (current) use of systemic steroids
CPT/HCPCS: 36415; 80053; 81001; 81025; 82009; 82803; 83036; 83690; 85025; 99283; A9270; 81003; 87086

== ENCOUNTER 2019-11-08 20:39 | Outpatient (CLI) | payer MEDICAID | END 2019-11-08 20:40 | disposition home or self-care (01) | LOC: SC 20:39 | PROVIDERS: ATTEND Internal Medicine Pulmonary Disease | DX: G47.33 Obstructive sleep apnea (adult) (pediatric) (principal); G70.00 Myasthenia gravis without (acute) exacerbation | CPT/HCPCS: 95811 ==

== ENCOUNTER 2019-11-16 15:28 | Outpatient (CLI) | payer MEDICAID ==
[2019-11-16 16:14] VITALS: BP 150/90
--- NOTE | 2019-11-16 16:14 | SLEEP CARE CONSULTATION ---
Information from patient questionnaire entered by Yari Dumont. I have reviewed and concur with the information entered by Yari Dumont. This document represents the service I personally performed and the decisions made by me, Xiomara Mcmillan, RN, MSN, MEMORIAL MARKER DESIGNER. History of Present Illness Service Date and Time: 11/16/2019 1528 Previous diagnosis: Severe, Obstructive Sleep Apnea-Hypopnea Syndrome AHI: 36.7 (in 2019) Reason for follow up: first compliance, with manual titration Equipment type: CPAP Equipment obtained from: [facility] (no replacement supplies yet) Mask style: Full face (Dreamwear full face mask) Backup mask available: No (keep current mask as spare when replaced) Last cushion change: no supplies since set up Prior sleep studies: Yes Year and Where: 2019 - [facility] Type of Sleep Study: Polysomnography Sleep Study - Results Polysomnography/Home Sleep Study results: The quality of the study is good. CPAP was initiated at 4 cmH2O and titrated up to CPAP at 8 cmH2O. CPAP at 7 cmH2O appeared to be optimal (AHI of 2.0 per hour on the pressure). There was supine REM sleep on the pressure. Oxygen saturation was minimally low. Lower CPAP settings allowed a few residual respiratory events. The patient appeared to have tolerated positive airway pressure therapy very well. The patients sleep efficiency was normal. The sleep architecture was relatively normal as well considering the first night effect. There was no periodic leg movement of sleep. Cardiac rhythm was normal sinus rhythm with mild tachycardia. No abnormal behavior (parasomnia) observed during the night. CONCLUSIONS and RECOMMENDATIONS: 1. Obstructive sleep apnea-hypopnea (ICD-10 G47.33), severe (AHI was 36.7), adequately controlled with CPAP at 7 cmH2O. CPAP therapy is, therefore, recommended at the pressure setting. AutoCPAP set between 5 and 9 cmH20 is also appropriate. Mask used was a Respironics AmaraView full face mask size large. With BMI of 36.0 Kg/M2, weight loss is also recommended. Electronically signed by: Lois Kruse M.D. Diplomate, [place] [employer] CPAP Compliance Data - Data Reviewed with Patient Average duration of nightly device use: 3.5 Compliance rate %: 46.7 (first 30 days) Current pressure setting (cmH2O): 4-15 Humidity settin Heated hose settin Average residual AHI: 0.9 Average large leak: 1 min 31 sec Subjective Patient concerns: reports: dry mouth, nose, throat (intermitttently.), other (Patient has noted that the hours of use are less than what she is using. ). denies: mask discomfort, air blowing in eyes, mask leak noise, condensation in mask/hose, nasal congestion, epistaxis Observed to snore while using device: No Current pressure setting perceived as: comfortable On therapy, patient: reports: sleeping better, awakening more refreshed, being more awake and alert during the day, more rested overall. denies: drowsiness while driving (drives rarely) Initial [place] Sleepiness Scale score: 16 (in 2017) Allergies and Home Medications Home medication list reviewed: No (will be starting metformin and glipizide) Review of Systems Review of systems same as previous: No (new diagnosis ) Physical Exam Vital signs obtained and entered by: + Blood Pressure: 150/90 (monitoring at home for PCP ) Cuff size: large Heart Rate: 84 O2 Saturation: 98 Height: 5 ft 8 in Weight: 320 lb 12.8 oz Body Mass Index: 48.7 BMI Classification: Morbidly Obese Impression and Plan 1. Obstructive Sleep Apnea-Hypopnea Syndrome, severe, with fair treatment compliance and good apnea control. On CPAP therapy, the patient has better sleep quality and is more rested overall. I will change her autoCPAP pressure range to [id number] as she had best control of REM apnea on that pressure. Since she was sleeping with head of bed up 15degrees when supine with 2 pillows as does at home at study. This pressure range will allow her to try sleeping with less elevation of head. She is advised that she can use the ramp at initiation with rationale explained and shown on sample CPAP. Oral dryness can be reduced by adjusting humidity setting higher or heated hose lower or by adjusting both settings. Verbal instructions given on how to change humidity and heated hose settings with rationale explaining why to change. Oral dryness can also be reduced by reducing mask leaks. Patient advised that chronic oral dryness can affect dental health and advised to follow up with dentist. In addition, there are oral dryness products that can be used to reduce dryness such as Biotene products, Dry mouth rinse and Xylomelts. Patient to discuss best option with dentist. Patient has not met compliance. She normally only sleeps 4- 5 hours. I explained most people require 7-9 hours of sleep for optimal mental and physical function. Less than 5-6 hours of sleep consistently can increase health risks. She is advised to strive for a minimum of 6 hours at least. Since she is moving to [place] to be closer to more family support with her mother next month, I will schedule a virtual visit for her compliance as she has not yet met. Once she meets compliance she can transfer [place] [facility] [place] new [place]. Patient's apnea severity and rationale for treatment to reduce apnea, improve sleep quality and reduce cardiovascular and cerebrovascular events was reviewed. I also reviewed the benefit of consistent device use of CPAP for her myasthenia gravis. 2. Elevated blood pressure. Patient has been monitoring at home to follow up with her PCP in a week to see if medications indicated. It has been running in this range at home. She is aware of health risks of untreated hypertension. * Changeauto CPAP pressure to 8-12 cmH2O * Check device for malfunction of hours used. * Follow up as planned with PCP for further evaluation of elevated blood pressure * Notify me if snoring with mask or feeling that the pressure is too much or too little * Attempt to lose weight * Call this office if any problems using CPAP * Return for follow up in 1-2 months, or sooner if concerns arise Visit Type: In Office Time Spent with Patient (minutes): 34 Provider Statement: I spent 100% of the Face to Face Visit with the patient with greater than 50% spent counseling the patient and coordination of care.
== END 2019-11-16 15:29 | disposition home or self-care (01) ==
LOC: SC 15:28
PROVIDERS: ATTEND Nurse Practitioner Family
DX: G47.33 Obstructive sleep apnea (adult) (pediatric) (principal); R03.0 Elevated blood-pressure reading, without diagnosis of hypertension; E66.01 Morbid (severe) obesity due to excess calories; Z68.42 Body mass index [BMI] 45.0-49.9, adult
CPT/HCPCS: 99212; 99214

== ENCOUNTER 2019-11-28 10:17 | Outpatient (CLI) | payer MEDICAID ==
[2019-11-28 15:58] LABS: CHOL/HDL RATIO 3.3 (<4.4); CHOLESTEROL 148 mg/dL; HDL CHOLESTEROL 45 mg/dL; LDL CHOLESTEROL,CALCULATED 78 mg/dL; LDL/HDL RATIO 1.7 (<4.4); VLDL CHOLESTEROL 25 mg/dL
[2019-11-28 16:10] LABS: CREATININE,URINE 154.2 mg/dL; MICROALBUM/CREATININE RATIO,UR 18.2 ug/mg (<30.0); MICROALBUMIN,URINE 2.8 mg/dL (0-300.0)
[2019-11-28 16:26] LABS: HEMOGLOBIN A1C 1.29 g/dL; HEMOGLOBIN A1C % 10.6 % (4.6-6.2)
== END 2019-11-28 10:18 | disposition home or self-care (01) ==
LOC: LAB.S 10:17
PROVIDERS: ATTEND Physician Assistant
DX: E11.9 Type 2 diabetes mellitus without complications (principal); R60.0 Localized edema; R01.1 Cardiac murmur, unspecified
CPT/HCPCS: 36415; 80061; 82043; 82570; 83036; 83721; 83880

== ENCOUNTER 2019-12-29 10:01 | Outpatient (CLI) | payer MEDICAID ==
--- NOTE | 2019-12-29 11:00 | SLEEP CARE CONSULTATION ---
Information from patient questionnaire entered by Iveth Carrera. I have reviewed and concur with the information entered by Iveth Carrera. This document represents the service I personally performed and the decisions made by me, Xiomara Mcmillan, RN, MSN, MANAGER PROCESS IMPROVEMENT. History of Present Illness Service Date and Time: 12/29/2019 1001 Previous diagnosis: Severe, Obstructive Sleep Apnea-Hypopnea Syndrome AHI: 36.7 Reason for follow up: first compliance Equipment type: CPAP Equipment obtained from: [facility] Mask style: Full face (Dreamwear full face mask) Backup mask available: Yes (from sleep study. ) Last cushion change: no supplies Prior sleep studies: Yes Year and Where: 2019 [facility] Type of Sleep Study: Polysomnography CPAP Compliance Data - Data Reviewed with Patient Average duration of nightly device use: 5 hours 32 minutes Compliance rate %: 76.7 Current pressure setting (cmH2O): 8-12 Humidity settin Heated hose settin Average residual AHI: 1.1 Average large leak: 10 seconds Subjective Patient concerns: denies: aerophagia, mask discomfort, air blowing in eyes, mask leak noise, condensation in mask/hose, nasal congestion, dry mouth, nose, throat, epistaxis Observed to snore while using device: No Current pressure setting perceived as: comfortable On therapy, patient: reports: sleeping better, awakening more refreshed, being more awake and alert during the day, more rested overall, other (awakened with a headache a few times / chronic headache history and now less. ). denies: drowsiness while driving (does not drive ) Initial [place] Sleepiness Scale score: 16 (in 2017) Allergies and Home Medications Known drug allergies: No Home medication list reviewed: No (no changes ) Review of Systems Review of systems same as previous: Yes Physical Exam Height: 5 ft 7 in Weight: 320 lb (not weighed since last visit. ) Body Mass Index: 50.1 BMI Classification: Morbidly Obese Impression and Plan 1. Obstructive Sleep Apnea-Hypopnea Syndrome, severe, with good treatment compliance and excellent apnea control. On CPAP therapy, the patient has better sleep quality and is more rested overall. Patient has moved to [place] to be closer to family. She obtained her CPAP from local [facility] and now needs to transfer to new [facility] in her area. I will have her speak to my borough coordinator to discuss process for her. She will need to follow up with new sleep provider with a referral from her PCP. It is hoped that her current insurance will pay for her for her CPAP device now that she is compliant so that she can transfer easily to a new DME once she has seen a sleep provider. . Otherwise she may need to restart compliance process with new CPAP and send back her current CPAP once she has re established care with new sleep provider. I also discussed the importance of regular CPAP follow up for her success of treatment and to ensure AHI is controlled as her myasthenia gravis progresses. This will be a team effort with her new sleep provider and neurologist. Currently she has insufficient sleep with CPAP. She is averaging 5.5 hours of sleep. Most people require 7-9 hours for optimal mental and physical function. Less than 5-6 hours of sleep can contribute to health risks. She states she is trying but her sleep is directed by her 12 mn and 6am. She was advised to discuss with her prescribing provider or next sleep provider how to manage more sleep. At this time I suggested either adding more sleep after 6am or going to sleep earlier and setting alarm for her midnight medication. The goal is to get a minimum of 7 hours of sleep. Patient's apnea severity and rationale for treatment to reduce apnea, improve sleep quality and reduce cardiovascular and cerebrovascular events was reviewed. I also reviewed the benefit of consistent device use of CPAP for her myasthenia gravis. She has also noted a reduction of her chronic headaches since CPAP use. * Continue auto CPAP pressure at 8-12 cmH2O * Follow up with new sleep provider and neurologist in [facility]. * Then transfer to new local [facility] * Notify me if snoring with mask or feeling that the pressure is too much or too little * Attempt to lose weight * Call this office if any problems using CPAP * Contact this office if any concerns in transition to new sleep provider. Visit Type: Telehealth Video Video Type: Mobio Location of Provider: Office Patient agrees and consents to this telehealth visit type: Yes Patient agrees to have their insurance billed: Yes Time Spent with Patient (minutes): 25 Provider Statement: I spent 100% of the Telehealth Video Call with the patient with greater than 50% spent counseling the patient and coordination of care.
== END 2019-12-29 10:02 | disposition home or self-care (01) ==
LOC: SC 10:01
PROVIDERS: ATTEND Nurse Practitioner Family
DX: G47.33 Obstructive sleep apnea (adult) (pediatric) (principal); E66.01 Morbid (severe) obesity due to excess calories; Z68.43 Body mass index [BMI] 50.0-59.9, adult